=== PATIENT | male | born 1975 | race Caucasian/White ===

== ENCOUNTER 2022-06-29 15:00 | Outpatient (CLI) | payer OTHER, SELFPAY | END 2022-06-29 15:01 | disposition home or self-care (01) | LOC: AMB 07-10 10:56 | PROVIDERS: Visit Provider Emergency Medicine Emergency Medical Services | DX: R04.0 Epistaxis (principal) | CPT/HCPCS: A0425; A0429 ==

== ENCOUNTER 2022-06-29 17:33 | Emergency (ER) | payer OTHER, SELFPAY ==
[2022-06-29 17:38] VITALS: BP 142/101; PULSE 107; RESP 22; TEMP 37.2; O2SAT 99; BMI 23.7
--- NOTE | 2022-06-29 17:50 | ED_ITS ---
History of Present Illness General Chief Complaint: Epistaxis/Nosebleed Stated Complaint: Nose Bleed Time Seen by Provider: 06/29/22 17:43 History of Present Illness HPI Narrative: This 46-year-old male comes in with persistent nose bleed over the past 12 hours or so. He states that he does take a baby aspirin. He reports that he has been applying direct pressure anteriorly without success. He states that he has lost a lot of blood but does have good skin color and arrives here with normal vital signs except for slightly increased heart rate. Related Data Allergies Allergy/AdvReac Type Severity Reaction Status Date / Time bee pollen Allergy Verified 06/29/22 17:37 bupropion [From Wellbutrin] Allergy Verified 06/29/22 17:37 Review of Systems Status of ROS: Reports: 10 or more systems reviewed and unremarkable except as noted in History and below Narrative: Constitutional: No fevers, no weight gain or loss. Eyes: No discharge. No vision changes. HENT: No congestion, no sore throat, no ear pain. Nose bleed as described above. Cardiovascular: No chest pain, no palpitations. Respiratory: No shortness of breath, no wheezes, no cough. Gastrointestinal: No abdominal pain, no vomiting, no diarrhea. Genitourinary: No dysuria, no hematuria. Musculoskeletal: Normal range of motion. Skin: No rashes, no pruritis. Neurological: No dizziness, weakness, sensory change, speech change. Endo/Heme/Allergies: No bruising or bleeding. No polydipsia. Pysch: no suicidality, no anxiety, no insomnia. All other systems reviewed and are negative. PFSH PFSH Social History Smoking Status: Current every day smoker What tobacco products do you use: cigarettes Smoking packs per day: 0.5 Smoking cigarettes per day: 10.0 Years smoked: 30 Smoking pack-years: 15.00 Do you use any of these nicotine containing products: None Second hand tobacco smoke exposure: Yes How often do you have a drink containing alcohol: 2-3 times a week How many standard drinks containing alcohol do you have on a typical day: 3 or 4 How often do you have six or more drinks on one occasion: Monthly AUDIT-C Alcohol total score: 6 Non-prescribed substance use: denies use service: Yes Exam Narrative: Exam Narrative: Constitutional: Well-developed, well-nourished, no acute distress. HEENT: Normocephalic, atraumatic. Bright red blood in the right nostril with active bleeding. Oropharynx is not showing any blood posteriorly at the time of my exam initially. Neck: Normal range of motion. Nontender. Supple. Heart: Intact distal pulses. Lungs: No chest discomfort. No wheezes, rhonchi, or rales. Abdomen: Nontender. Back: Normal range of motion. Extremities: Normal range of motion. No injury. Skin: Intact. No rash. Warm. No erythema or pallor. Neurologic: No altered sensation. No weakness. Alert and oriented. Psychiatric: No suicidality. No anxiety or depression. No insomnia. Nursing notes and vitals signs are reviewed. Const: Vital Signs, click to edit/add: Vital Signs - 24 hr 06/29/22 17:38 Temperature 99 F Pulse Rate [Pulse Oximeter] 107 H Respiratory Rate 22 Blood Pressure [Ri ght Upper Arm] 142/101 H Pulse Oximetry 99 Oxygen Delivery Me thod Room Air Course Vital Signs Vital signs: Initial Vital Signs Temperature 99 F 06/29/22 17:38 Temperature Source Temporal Artery Scan 06/29/22 17:38 Pulse Rate 107 H 06/29/22 17:38 Pulse Rhythm 06/29/22 17:38 Respiratory Rate 22 06/29/22 17:38 Blood Pressure 142/101 H 06/29/22 17:38 Blood Pressure Mean 114 06/29/22 17:38 Pulse Oximetry 99 06/29/22 17:38 Oxygen Delivery Method 06/29/22 17:38 Vital Signs Temperature 99 F 06/29/22 17:38 Pulse Rate 107 H 06/29/22 17:38 Respiratory Rate 22 06/29/22 17:38 Blood Pressure 142/101 H 06/29/22 17:38 Pulse Oximetry 99 06/29/22 17:38 Oxygen Delivery Method 06/29/22 17:38 Temperature 99 F 06/29/22 17:38 Pulse Rate 107 H 06/29/22 17:38 Respiratory Rate 22 06/29/22 17:38 Blood Pressure 142/101 H 06/29/22 17:38 Pulse Oximetry 99 06/29/22 17:38 Oxygen Delivery Method 06/29/22 17:38 MDM - Epistaxis MDM Narrative Medical decision making narrative: This patient comes in with persistent bleeding from his right nostril. Soon after arrival he received a dose of Afrin in each nostril and a nasal clamp was placed. He kept this in place for 15 or 20 minutes. After this I examined his nostrils in there are no signs of active bleeding. There is evidence of a anterior bleed along the septum of the right nostril. Posterior to this there is no evidence of bleeding. He did not have any ongoing drainage down his throat. At the time of discharge the patient appears safe for outpatient management. The treatment plan is reviewed along with written and verbal return precautions. Reasons to return and the importance of close followup were also reviewed. Discharge Plan Discharge Clinical Impression: Epistaxis Patient Disposition: Home, Self-Care Condition: Improved Additional Instructions: Use Afrin and nasal clamp in the event of rebleeding. Return if unable to stop the bleeding. Follow up with MD otherwise as needed. Follow Up/Referrals: Provider,Not a Local [Primary Care Provider] - Stand Alone Forms: [employer] Info Instructions
[2022-06-29] MEDS: OXYMETAZOLINE 0.05% NASAL SPRAY 1 SPRAY NOSTRIL-B (17:55)
[2022-06-29 18:53] VITALS: BP 140/93; RESP 18; O2SAT 98
== END 2022-06-29 18:55 | disposition home or self-care (01) ==
PROVIDERS: Emergency Provider Emergency Medicine Emergency Medical Services
DX: R04.0 Epistaxis (principal)
CPT/HCPCS: 99282; 99283; 99284